=== PATIENT | female | born 1975 | race Caucasian/White ===

== ENCOUNTER → 2021-11-15 14:28 | Outpatient (BNVA) | payer BC, SELFPAY | PROVIDERS: Visit Provider Family Medicine | DX: Z13.1 Encounter for screening for diabetes mellitus (principal); I10 Essential (primary) hypertension; R53.83 Other fatigue; R00.0 Tachycardia, unspecified; E03.9 Hypothyroidism, unspecified; Z13.6 Encounter for screening for cardiovascular disorders; G47.00 Insomnia, unspecified; F41.1 Generalized anxiety disorder; R53.82 Chronic fatigue, unspecified; F51.01 Primary insomnia; Z76.89 Persons encountering health services in other specified circumstances | CPT/HCPCS: 80053; 80061; 82962; 83721; 84443; 85025 ==

== ENCOUNTER → 2021-11-16 11:23 | Outpatient (BNVA) | payer BC, SELFPAY | PROVIDERS: Visit Provider Family Medicine | DX: R53.83 Other fatigue; R00.0 Tachycardia, unspecified; E11.65 Type 2 diabetes mellitus with hyperglycemia | CPT/HCPCS: 83036 ==

== ENCOUNTER → 2022-05-30 09:02 | Outpatient (BNVA) | payer BC, SELFPAY | PROVIDERS: PCP Family Medicine; Visit Provider Family Medicine | DX: E11.65 Type 2 diabetes mellitus with hyperglycemia (principal); I10 Essential (primary) hypertension | CPT/HCPCS: 80048; 83036 ==

== ENCOUNTER → 2022-08-29 09:28 | Outpatient (BNVA) | payer BC, SELFPAY | PROVIDERS: PCP Family Medicine; Visit Provider Family Medicine | DX: E11.65 Type 2 diabetes mellitus with hyperglycemia (principal); I10 Essential (primary) hypertension | CPT/HCPCS: 80048; 83036 ==